=== PATIENT | male | born 1950 | race Caucasian/White ===

== ENCOUNTER 2019-04-16 21:09 | Emergency (ER) | payer SELFPAY ==
[~2019-04-16] VITALS: Ht 182.9 cm; Wt 104.3 kg
[2019-04-16] MEDS ORDERED: ATOR20 PO (21:32)
[2019-04-16] MEDS ORDERED: ASPI81CH PO (21:32)
[2019-04-16] MEDS ORDERED: LOSA50 PO (21:32)
[2019-04-16] MEDS ORDERED: TAMS.4ER PO (21:32)
[2019-04-16] MEDS ORDERED: Vitamin D2000 UNIT PO (21:32)
[2019-04-16] MEDS ORDERED: NOVOLOG FL100 UNIT/1 SC (21:33)
[2019-04-16] MEDS ORDERED: Novolog100 UNIT/2 SC (21:34)
[2019-04-16] MEDS ORDERED: INSULANPEN SC (21:34)
[2019-04-16] MEDS ORDERED: Glucagon Emergen1 MG (21:34)
[2019-04-16 21:54] LABS: BASOPHILS ABSOLUTE AUTO 0.03 K/mm3 (0.00-0.23); BASOPHILS PERCENT AUTO 0 % (0-2); EOSINOPHILS ABSOLUTE AUTO 0.07 K/mm3 (0.00-0.68); EOSINOPHILS PERCENT AUTO 1 % (0-6); Hematocrit 46.3 % (37.0-53.0); Hemoglobin 15.7 g/dL (13.5-17.5); IMMATURE GRAN ABSOLUTE AUTO 0.02 K/mm3 (0.00-0.10); IMMATURE GRAN PERCENT AUTO 0 % (0-1); LYMPHOCYTES ABSOLUTE AUTO 1.55 K/mm3 (0.84-5.20); LYMPHOCYTES PERCENT AUTO 19 % (21-46); MONOCYTES ABSOLUTE AUTO 0.59 K/mm3 (0.16-1.47); MONOCYTES PERCENT AUTO 7 % (4-13); Mean Corpuscular HGB 32.9 pg (26.0-34.0); Mean Corpuscular HGB Conc 33.9 g/dL (31.5-36.5); Mean Corpuscular Volume 97 fL (80-100); Mean Platelet Volume 12.5 fL (9.1-12.4); NEUTROPHILS ABSOLUTE AUTO 5.73 K/mm3 (1.96-9.15); NEUTROPHILS PERCENT AUTO 72 % (41-73); Platelet Count 119 K/mm3 (150-400); RDW Coefficient Variation 12.8 % (11.7-14.2); RDW Standard Deviation 45.2 fL (35.1-46.3); Red Blood Cell Count 4.77 M/mm3 (4.30-5.90); White Blood Cell Count 7.99 K/mm3 (4.00-11.30)
[2019-04-16 22:07] LABS: Alanine Aminotransfer (ALT/SGP 35 U/L (12-78); Albumin, Blood 3.6 g/dL (3.4-5.0); Albumin/Globulin Ratio 1.1 (0.8-1.8); Alk Phos 109 U/L (50-136); Anion Gap 9 mmol/L (6-16); Aspartate Aminotrans (AST/SGOT 17 U/L (12-37); Bilirubin, Total 0.6 mg/dL (0.1-1.0); Blood Urea Nitrogen 11 mg/dL (8-24); Bun/Creatinine Ratio 16.2 (12.0-20.0); CO2, Blood 25 mmol/L (21-32); Calcium, Blood 8.3 mg/dL (8.5-10.1); Chloride, Blood 111 mmol/L (98-108); Creatinine, Blood 0.68 mg/dL (0.60-1.20); Globulin, Blood 3.2 g/dL (2.2-4.0); Glomerular Filtration Rate >60 (60-); Glucose, Blood 175 mg/dL (70-99); Potassium, Blood 3.8 mmol/L (3.5-5.5); Sodium, Blood 145 mmol/L (136-145); Total Protein, Blood 6.8 g/dL (6.4-8.2)
== END 2019-04-17 01:16 | disposition home or self-care (01) ==
LOC: ER 21:09
PROVIDERS: Internal Medicine
DX: S01.511A Laceration without foreign body of lip, initial encounter (principal); S01.312A Laceration without foreign body of left ear, initial encounter; S41.111A Laceration without foreign body of right upper arm, initial encounter; E11.9 Type 2 diabetes mellitus without complications; Z79.4 Long term (current) use of insulin; W18.30XA Fall on same level, unspecified, initial encounter
CPT/HCPCS: 12001; 12011; 70450; 72125; 80053; 82947; 85025; 90471; 90714; 93005; 93010; 99284-25